=== PATIENT | male | born 1955 | race Caucasian/White ===

== ENCOUNTER 2017-02-24 19:28 | Observation (INO) | payer BC ==
[2017-02-24] MEDS ORDERED: Ondansetron 4 MG/2 ML SDV IVPUSH ONE (19:57)
[2017-02-24] MEDS ORDERED: Sodium Chloride 0.9% 1,000 ML IV ONE (19:57)
--- NOTE | 2017-02-24 19:57 | EDM.PDOC ---
ED HPI GENERAL MEDICAL PROBLEM - General Stated Complaint: VOMITING BLOOD Time Seen by Provider: 02/24/17 19:45 Source of Information: Reports: Patient, Family History Limitations: Reports: No Limitations - History of Present Illness INITIAL COMMENTS - FREE TEXT/NARRATIVE: History of present illness: [61-year-old male presenting with acute vomiting of dark blood and some small amount of rectal bleeding. Patient indicates that this started this afternoon and escalated to the point that he can control vomiting nor does he have consistent control of his bowel movements.] Review of systems: As per history of present illness and below otherwise all systems reviewed and negative. Past medical history: As per history of present illness and as reviewed below otherwise noncontributory. Surgical history: As per history of present illness and as reviewed below otherwise noncontributory. Social history: No reported history of drug or alcohol abuse. Family history: As per history of present illness and as reviewed below otherwise noncontributory. Physical exam: HEENT: Atraumatic, normocephalic, pupils reactive, negative for conjunctival pallor or scleral icterus, mucous membranes moist, throat clear, neck supple, nontender, trachea midline. Lungs: Clear to auscultation, breath sounds equal bilaterally, chest nontender. Heart: S1S2, regular, negative for clicks, rubs, or JVD. Abdomen: Soft, nondistended, nontender. Negative for masses or hepatosplenomegaly. Negative for costovertebral tenderness. Pelvis: Stable nontender. Genitourinary: Deferred. Rectal: Deferred. Extremities: Atraumatic, negative for cords or calf pain. Neurovascular unremarkable. Neuro: Awake, alert, oriented. Cranial nerves II through XII unremarkable. Cerebellum unremarkable. Motor and sensory unremarkable throughout. Exam nonfocal. Patient vomiting into sink upon arrival with obvious blood and water mixed. Patient acknowledges drinking a significant amount of water due to excessive thirst prior to arrival. After vomiting patient requested to drink more water. Patient was also incontinent of obvious basil dark lead, as well as rushing to the bathroom and having basil blood tinged stooling. Patient acknowledged that he has having trouble maintaining continence and in fact soiled his gown in attempting to get to the bathroom in a timely manner. Dr. Romero called and informed of patient in ED indicated he would come in and evaluate patient at bedside. Diagnostics: [CBC, CMP, UA, amylase, lipase, CT without contrast] Therapeutics: [IV fluid, Zofran, Protonix IV push] Impression: [#1 GI bleed] Plan: [Admit to Dr. Romero] Definitive disposition and diagnosis as appropriate pending reevaluation and review of above. abdominal area Pain Score (Numeric/FACES): 5 - Related Data Allergies Allergy/AdvReac Type Severity Reaction Status Date / Time thiethylperazine Allergy Shortness Verified 02/24/17 20:39 [From Torecan] of Breath Home Meds: Home Meds Cetirizine HCl [Zyrtec] 10 mg PO DAILY 02/24/17 [History] Fluticasone/Vilanterol [Breo Ellipta 200-25 Mcg INH] 1 puff INH DAILY 02/24/17 [ History] Ibuprofen 800 mg PO BID 02/24/17 [History] Levothyroxine 175 mcg PO DAILY 02/24/17 [History] Mometasone Furoate 2 spray INH DAILY 02/24/17 [History] Temazepam [Restoril] 15 mg PO ASDIRECTED PRN 02/24/17 [History] Umeclidinium [place] [Incruse Ellipta*] 1 puff INH DAILY 02/24/17 [History] amLODIPine [Norvasc] 5 mg PO DAILY 02/24/17 [History] metFORMIN [Glucophage] 500 mg PO BID 02/24/17 [History] ED ROS GENERAL - Review of Systems Review Of Systems: See Below (The history of present illness) ED EXAM, GENERAL - Physical Exam Exam: See Below (See history of present illness) Course - Vital Signs Last Recorded V/S: Last Vital Signs Temp 36.5 C 02/24/17 22:46 Pulse 102 H 02/24/17 21:57 Resp 18 02/24/17 22:46 BP 148/87 H 02/24/17 22:46 Pulse Ox 94 L 02/24/17 22:46 - Orders/Labs/Meds Orders: Active Orders 24 hr Category Date Time Status Abdomen Pelvis w Cont [CT] Stat Exams 02/24/17 20:32 Stop Req Abdomen Pelvis wo Cont [CT] Stat Exams 02/24/17 21:20 Ordered DRUG SCREEN, URINE [URCHEM] Stat Lab 02/24/17 21:20 Uncollected Pantoprazole [ProTONIX IV] 80 mg Med 02/24/17 20:45 Ordered Sodium Chloride 0.9% [Normal Saline] 100 ml IV .Continuous Sodium Chloride 0.9% [Normal Saline] 1,000 ml Med 02/24/17 23:00 Active IV ASDIRECTED Medication Orders Pantoprazole Sodium 80 mg/ (Sodium Chloride) 100 mls @ 10 mls/hr IV .Continuous FAN Last Admin: 02/24/17 21:14 Dose: 10 mls/hr Sodium Chloride (Normal Saline) 1,000 mls @ 999 mls/hr IV ASDIRECTED FAN Last Admin: 02/24/17 22:47 Dose: 999 mls/hr Labs: Laboratory Tests 02/24/17 02/24/17 02/24/17 Range/Units 20:04 20:05 20:30 WBC 18.64 H (4.0-11.0) K/uL RBC 6.21 H (4.50-5.90) M/uL Hgb 20.2 H (13.0-17.0) g/dL Hct 55.9 H (38.0-50.0) % MCV 90.0 (80.0-98.0) fL MCH 32.5 H (27.0-32.0) pg MCHC 36.1 (31.0-37.0) g/dL RDW Std Deviation 43.2 (28.0-62.0) fl RDW Coeff of Sergio 13 (11.0-15.0) % Plt Count 267 (150-400) K/uL MPV 10.50 (7.40-12.00) fL Neut % (Auto) 82.6 H (48.0-80.0) % Lymph % (Auto) 7.6 L (16.0-40.0) % Lucas % (Auto) 9.4 (0.0-15.0) % Eos % (Auto) 0.2 (0.0-7.0) % Baso % (Auto) 0.2 (0.0-1.5) % Neut # (Auto) 15.4 H (1.4-5.7) K/uL Lymph # (Auto) 1.4 (0.6-2.4) K/uL Lucas # (Auto) 1.8 H (0.0-0.8) K/uL Eos # (Auto) 0.0 (0.0-0.7) K/uL Baso # (Auto) 0.0 (0.0-0.1) K/uL Nucleated RBC % 0.0 /100WBC Nucleated RBCs # 0 K/uL Lactate (0.20-2.00) mmol/L Sodium 133 L (136-146) mmol/L Potassium 4.8 (3.5-5.1) mmol/L Chloride 103 (98-110) mmol/L Carbon Dioxide 13 L (21-31) mmol/L BUN 34 H (6.0-23.0) mg/dL Creatinine 2.5 H (0.6-1.5) mg/dL Est Cr Clr Drug Dosing TNP Estimated GFR (MDRD) 26.6 ml/min Glucose 164 H (60-110) mg/dL POC Glucose 154 H (60-110) mg/dL Calcium 10.7 (8.8-10.8) mg/dL Total Bilirubin 1.6 H (0.1-1.5) mg/dL AST 98 H (5-40) IU/L ALT 109 H (8-54) IU/L Alkaline Phosphatase 117 (40-150) Total Protein 9.5 H (6.0-8.0) g/dL Albumin 4.7 (3.5-5.0) g/dL Globulin 4.8 H (2.0-3.5) g/dL Albumin/Globulin Ratio 1.0 L (1.3-2.8) Amylase 56 (10-90) U/L Lipase 26 (7-80) U/L Ethyl Alcohol mg/dL 02/24/17 02/24/17 Range/Units 20:30 20:30 WBC (4.0-11.0) K/uL RBC (4.50-5.90) M/uL Hgb (13.0-17.0) g/dL Hct (38.0-50.0) % MCV (80.0-98.0) fL MCH (27.0-32.0) pg MCHC (31.0-37.0) g/dL RDW Std Deviation (28.0-62.0) fl RDW Coeff of Sergio (11.0-15.0) % Plt Count (150-400) K/uL MPV (7.40-12.00) fL Neut % (Auto) (48.0-80.0) % Lymph % (Auto) (16.0-40.0) % Lucas % (Auto) (0.0-15.0) % Eos % (Auto) (0.0-7.0) % Baso % (Auto) (0.0-1.5) % Neut # (Auto) (1.4-5.7) K/uL Lymph # (Auto) (0.6-2.4) K/uL Lucas # (Auto) (0.0-0.8) K/uL Eos # (Auto) (0.0-0.7) K/uL Baso # (Auto) (0.0-0.1) K/uL Nucleated RBC % /100WBC Nucleated RBCs # K/uL Lactate 2.3 H (0.20-2.00) mmol/L Sodium (136-146) mmol/L Potassium (3.5-5.1) mmol/L Chloride (98-110) mmol/L Carbon Dioxide (21-31) mmol/L BUN (6.0-23.0) mg/dL Creatinine (0.6-1.5) mg/dL Est Cr Clr Drug Dosing Estimated GFR (MDRD) ml/min Glucose (60-110) mg/dL POC Glucose (60-110) mg/dL Calcium (8.8-10.8) mg/dL Total Bilirubin (0.1-1.5) mg/dL AST (5-40) IU/L ALT (8-54) IU/L Alkaline Phosphatase (40-150) Total Protein (6.0-8.0) g/dL Albumin (3.5-5.0) g/dL Globulin (2.0-3.5) g/dL Albumin/Globulin Ratio (1.3-2.8) Amylase (10-90) U/L Lipase (7-80) U/L Ethyl Alcohol < 10.0 mg/dL Meds: Medications Generic Name Dose Route Start Last Admin Trade Name Freq PRN Reason Stop Dose Admin Pantoprazole Sodium 80 mg/ 100 mls @ 10 mls/hr 02/24/17 20:45 02/24/17 21:14 Sodium Chloride IV 10 mls/hr .Continuous FAN Administration Sodium Chloride 1,000 mls @ 999 mls/hr 02/24/17 23:00 02/24/17 22:47 Normal Saline IV 999 mls/hr ASDIRECTED FAN Administration Discontinued Medications Generic Name Dose Route Start Last Admin Trade Name Mario PRN Reason Stop Dose Admin Sodium Chloride 1,000 mls @ 999 mls/hr 02/24/17 19:57 02/24/17 20:27 Normal Saline IV 02/24/17 20:57 999 mls/hr STAT ONE Administration Ondansetron HCl 4 mg 02/24/17 19:57 02/24/17 20:27 Zofran IVPUSH 02/24/17 19:58 4 mg ONETIME ONE Administration Pantoprazole Sodium 80 mg 02/24/17 20:00 02/24/17 20:27 Protonix Iv IVPUSH 02/24/17 20:01 80 mg .BOLUS ONE Administration Departure - Departure Time of Disposition: 22:50 Disposition: Admitted As Inpatient 68 Condition: Good Clinical Impression: GI bleed - Discharge Information Referrals: PCP,None [Primary Care Provider] - - My Orders Last 24 Hours: My Active Orders 02/24/17 20:32 Abdomen Pelvis w Cont [CT] Stat 02/24/17 20:45 Pantoprazole [ProTONIX IV] 80 mg Sodium Chloride 0.9% [Normal Saline] 100 ml IV .Continuous 02/24/17 21:20 Abdomen Pelvis wo Cont [CT] Stat DRUG SCREEN, URINE [URCHEM] Stat 02/24/17 23:00 Sodium Chloride 0.9% [Normal Saline] 1,000 ml IV ASDIRECTED - Assessment/Plan Last 24 Hours: My Active Orders 02/24/17 20:32 Abdomen Pelvis w Cont [CT] Stat 02/24/17 20:45 Pantoprazole [ProTONIX IV] 80 mg Sodium Chloride 0.9% [Normal Saline] 100 ml IV .Continuous 02/24/17 21:20 Abdomen Pelvis wo Cont [CT] Stat DRUG SCREEN, URINE [URCHEM] Stat 02/24/17 23:00 Sodium Chloride 0.9% [Normal Saline] 1,000 ml IV ASDIRECTED
[2017-02-24] MEDS ORDERED: Pantoprazole 40 MG Vial IVPUSH ONE (20:00)
[2017-02-24 20:57] LABS: CHLORIDE,CL 103 mmol/L (98-110); SODIUM,NA 133 mmol/L (136-146)
[2017-02-24] MEDS: Pantoprazole 80 MG in Sodium Chloride 0.9% 100 ML IV SCH (21:14)
[2017-02-24] MEDS ORDERED: Sodium Chloride 0.9% 1,000 ML IV SCH (23:00)
[2017-02-25] MEDS ORDERED: Ondansetron 4 MG/2 ML SDV IVPUSH PRN (00:12)
--- NOTE | 2017-02-25 00:22 | PCM.HP ---
H&P History of Present Illness - General Admit Problem/Dx: Admission Diagnosis/Problem Admission Diagnosis/Problem Gastritis - History of Present Illness Initial Comments - Free Text/Narative: 61 yo male with pmh of COPD and ETOH cirrhosis who presents with nausea, vomiting and diarrhea. He reports the last few days at work had been physically exhausting and emotionally stress full. He thinks he was dehydrated. He reports after eating dinner he had multiple episodes of vomit with some flecks of red blood. He also reports continuous watery stools that were yellow in color but he denies any blood in his stool. He reports he had an EGD in the s which was normal. He received IV fluids in the ED and reports he is feeling much better. CT scan of the abdomen reports bowel wall thickening of the duodenum. Patient takes ibuprofen daily for back pain. abdominal area Pain Score (Numeric/FACES): 5 - Related Data Allergies/Adverse Reactions: Allergies Allergy/AdvReac Type Severity Reaction Status Date / Time thiethylperazine Allergy Shortness Verified 02/24/17 20:39 [From Torecan] of Breath Home Medications: Home Meds Cetirizine HCl [Zyrtec] 10 mg PO DAILY 02/24/17 [History] Fluticasone/Vilanterol [Breo Ellipta 200-25 Mcg INH] 1 puff INH DAILY 02/24/17 [ History] Ibuprofen 800 mg PO BID 02/24/17 [History] Levothyroxine 175 mcg PO DAILY 02/24/17 [History] Mometasone Furoate 2 spray INH DAILY 02/24/17 [History] Temazepam [Restoril] 15 mg PO ASDIRECTED PRN 02/24/17 [History] Umeclidinium [place] [Incruse Ellipta*] 1 puff INH DAILY 02/24/17 [History] amLODIPine [Norvasc] 5 mg PO DAILY 02/24/17 [History] metFORMIN [Glucophage] 500 mg PO BID 02/24/17 [History] Past Medical History Cardiovascular History: Reports: Hypertension Respiratory History: Reports: Asthma, COPD, Sleep Apnea Musculoskeletal History: Reports: Back Pain, Chronic Other Endocrine/Metabolic History: grave's dse - Infectious Disease History Infectious Disease History: Reports: Chicken Pox, Measles, Mumps - Past Surgical History Cardiovascular Surgical History: Reports: None Respiratory Surgical History: Reports: None Musculoskeletal Surgical History: Reports: Carpal Tunnel, Shoulder Replacement Other Musculoskeletal Surgeries/Procedures:: back surgery, right arm and leg surgery Social & Family History - Family History Family Medical History: Noncontributory - Tobacco Use Smoking Status *Q: Never Smoker Second Hand Smoke Exposure: No - Caffeine Use Caffeine Use: Reports: Coffee Caffeine Use Comment: 1cup/day - Recreational Drug Use Recreational Drug Use: No H&P Review of Systems - Review of Systems: Review Of Systems: ROS reveals no pertinent complaints other than HPI. Exam - Exam Exam: See Below - Vital Signs Vital Signs: Last Vital Signs Temp 36.5 C 02/24/17 22:46 Pulse 102 H 02/24/17 21:57 Resp 18 02/24/17 22:46 BP 148/87 H 02/24/17 22:46 Pulse Ox 94 L 02/24/17 22:46 Weight: 112.1 kg - Exam General: Alert, Oriented HEENT: Mucosa Moist & [place] Neck: Supple Lungs: Clear to Auscultation, Normal Respiratory Effort Cardiovascular: Regular Rate, Systolic Murmur GI/Abdominal Exam: Soft, Non-Tender, No Distention, No Mass Extremities: Non-Tender, No Pedal Edema Skin: Warm, Dry, Intact - Patient Data Lab Results Last 24 hrs: Laboratory Results - last 24 hr 02/24/17 02/24/17 02/24/17 Range/Units 20:04 20:05 20:30 WBC 18.64 H (4.0-11.0) K/uL RBC 6.21 H (4.50-5.90) M/uL Hgb 20.2 H (13.0-17.0) g/dL Hct 55.9 H (38.0-50.0) % MCV 90.0 (80.0-98.0) fL MCH 32.5 H (27.0-32.0) pg MCHC 36.1 (31.0-37.0) g/dL RDW Std Deviation 43.2 (28.0-62.0) fl RDW Coeff of Sergio 13 (11.0-15.0) % Plt Count 267 (150-400) K/uL MPV 10.50 (7.40-12.00) fL Neut % (Auto) 82.6 H (48.0-80.0) % Lymph % (Auto) 7.6 L (16.0-40.0) % [place] % (Auto) 9.4 (0.0-15.0) % Eos % (Auto) 0.2 (0.0-7.0) % Baso % (Auto) 0.2 (0.0-1.5) % Neut # (Auto) 15.4 H (1.4-5.7) K/uL Lymph # (Auto) 1.4 (0.6-2.4) K/uL [place] # (Auto) 1.8 H (0.0-0.8) K/uL Eos # (Auto) 0.0 (0.0-0.7) K/uL Baso # (Auto) 0.0 (0.0-0.1) K/uL Nucleated RBC % 0.0 /100WBC Nucleated RBCs # 0 K/uL Lactate (0.20-2.00) mmol/L Sodium 133 L (136-146) mmol/L Potassium 4.8 (3.5-5.1) mmol/L Chloride 103 (98-110) mmol/L Carbon Dioxide 13 L (21-31) mmol/L BUN 34 H (6.0-23.0) mg/dL Creatinine 2.5 H (0.6-1.5) mg/dL Est Cr Clr Drug Dosing TNP Estimated GFR (MDRD) 26.6 ml/min Glucose 164 H (60-110) mg/dL POC Glucose 154 H (60-110) mg/dL Calcium 10.7 (8.8-10.8) mg/dL Total Bilirubin 1.6 H (0.1-1.5) mg/dL AST 98 H (5-40) IU/L ALT 109 H (8-54) IU/L Alkaline Phosphatase 117 (40-150) Total Protein 9.5 H (6.0-8.0) g/dL Albumin 4.7 (3.5-5.0) g/dL Globulin 4.8 H (2.0-3.5) g/dL Albumin/Globulin Ratio 1.0 L (1.3-2.8) Amylase 56 (10-90) U/L Lipase 26 (7-80) U/L Urine Opiates Screen (NEGATIVE) Ur Oxycodone Screen (NEGATIVE) Urine Methadone Screen (NEGATIVE) Ur Barbiturates Screen (NEGATIVE) Ur Phencyclidine Scrn (NEGATIVE) Ur Amphetamine Screen (NEGATIVE) U Methamphetamines Scrn (NEGATIVE) U Benzodiazepines Scrn (NEGATIVE) U Cocaine Metab Screen (NEGATIVE) U Marijuana (THC) Screen (NEGATIVE) Ethyl Alcohol mg/dL 02/24/17 02/24/17 02/24/17 Range/Units 20:30 20:30 23:20 WBC (4.0-11.0) K/uL RBC (4.50-5.90) M/uL Hgb (13.0-17.0) g/dL Hct (38.0-50.0) % MCV (80.0-98.0) fL MCH (27.0-32.0) pg MCHC (31.0-37.0) g/dL RDW Std Deviation (28.0-62.0) fl RDW Coeff of Sergio (11.0-15.0) % Plt Count (150-400) K/uL MPV (7.40-12.00) fL Neut % (Auto) (48.0-80.0) % Lymph % (Auto) (16.0-40.0) % [place] % (Auto) (0.0-15.0) % Eos % (Auto) (0.0-7.0) % Baso % (Auto) (0.0-1.5) % Neut # (Auto) (1.4-5.7) K/uL Lymph # (Auto) (0.6-2.4) K/uL [place] # (Auto) (0.0-0.8) K/uL Eos # (Auto) (0.0-0.7) K/uL Baso # (Auto) (0.0-0.1) K/uL Nucleated RBC % /100WBC Nucleated RBCs # K/uL Lactate 2.3 H (0.20-2.00) mmol/L Sodium (136-146) mmol/L Potassium (3.5-5.1) mmol/L Chloride (98-110) mmol/L Carbon Dioxide (21-31) mmol/L BUN (6.0-23.0) mg/dL Creatinine (0.6-1.5) mg/dL Est Cr Clr Drug Dosing Estimated GFR (MDRD) ml/min Glucose (60-110) mg/dL POC Glucose (60-110) mg/dL Calcium (8.8-10.8) mg/dL Total Bilirubin (0.1-1.5) mg/dL AST (5-40) IU/L ALT (8-54) IU/L Alkaline Phosphatase (40-150) Total Protein (6.0-8.0) g/dL Albumin (3.5-5.0) g/dL Globulin (2.0-3.5) g/dL Albumin/Globulin Ratio (1.3-2.8) Amylase (10-90) U/L Lipase (7-80) U/L Urine Opiates Screen NEGATIVE (NEGATIVE) Ur Oxycodone Screen NEGATIVE (NEGATIVE) Urine Methadone Screen NEGATIVE (NEGATIVE) Ur Barbiturates Screen NEGATIVE (NEGATIVE) Ur Phencyclidine Scrn NEGATIVE (NEGATIVE) Ur Amphetamine Screen NEGATIVE (NEGATIVE) U Methamphetamines Scrn POSITIVE (NEGATIVE) U Benzodiazepines Scrn NEGATIVE (NEGATIVE) U Cocaine Metab Screen NEGATIVE (NEGATIVE) U Marijuana (THC) Screen NEGATIVE (NEGATIVE) Ethyl Alcohol < 10.0 mg/dL Result Diagrams: 02/25/17 05:02 02/25/17 05:02 *Q Meaningful Use (ADM) - VTE *Q VTE Criteria *Q: - Stroke *Q Stroke Criteria *Q: - AMI *Q AMI Criteria *Q: Problem List Initiated/Reviewed/Updated: Yes Orders Last 24hrs: Active Orders 24 hr Category Date Time Status Patient Status [ADT] Routine ADT 02/25/17 00:12 Ordered Antiembolic Devices [RC] PER UNIT ROUTINE Care 02/25/17 00:15 Ordered Intake and Output [RC] QSHIFT Care 02/25/17 00:15 Ordered Oxygen Therapy [RC] PRN Care 02/25/17 00:12 Ordered Up ad [place] [RC] ASDIRECTED Care 02/25/17 00:12 Ordered VTE/DVT Education [RC] PER UNIT ROUTINE Care 02/25/17 00:12 Ordered Vital Signs [RC] Q4H Care 02/25/17 00:12 Ordered Nothing per Oral Now Diet [DIET] Diet 02/25/17 Breakfast Ordered Abdomen Pelvis wo Cont [CT] Stat Exams 02/24/17 21:20 Taken CBC WITH AUTO DIFF [HEME] AM Lab 02/25/17 05:11 Ordered COMPREHENSIVE METABOLIC PN,CMP [CHEM] AM Lab 02/25/17 05:11 Ordered Ondansetron [Zofran] Med 02/25/17 00:12 Ordered 4 mg IVPUSH Q4H PRN Pantoprazole [ProTONIX IV] 80 mg Med 02/24/17 20:45 Active Sodium Chloride 0.9% [Normal Saline] 100 ml IV .Continuous Sodium Chloride 0.9% @ 125 MLS/HR (1000ml) Med 02/25/17 00:15 Ordered Sodium Chloride 0.9% [Normal Saline] 1,000 ml IV ASDIRECTED Sodium Chloride 0.9% [Normal Saline] 1,000 ml Med 02/24/17 23:00 Active IV ASDIRECTED Sequential Compression Device [OM.PC] Per Unit Routine Oth 02/25/17 00:15 Ordered Resuscitation Status Routine Resus Stat 02/25/17 00:12 Ordered Medication Orders Pantoprazole Sodium 80 mg/ (Sodium Chloride) 100 mls @ 10 mls/hr IV .Continuous FAN Last Admin: 02/24/17 21:14 Dose: 10 mls/hr Sodium Chloride (Normal Saline) 1,000 mls @ 999 mls/hr IV ASDIRECTED FAN Last Admin: 02/24/17 22:47 Dose: 999 mls/hr Assessment/Plan Comment:: 61 yo male admitted with nausea, vomiting and diarrhea with CT scan suggestive of duodenitis. Treating with IV protonix and IV fluids. At this point do not think significant GI bleeding has occurred but will continue to monitor. Dr. Zhou has been consulted.
[2017-02-25] MEDS ORDERED: cefTRIAXone 1,000 MG in Sodium Chloride 0.9% 50 ML IV ONE (00:23)
[2017-02-25] MEDS ORDERED: cefTRIAXone 1 GM in Premix Bag 1 BAG IV ONE (01:08)
[2017-02-25] MEDS: Sodium Chloride 0.9% 1,000 ML IV SCH ×2 (01:53→10:17)
[2017-02-25] MEDS: Pantoprazole 80 MG in Sodium Chloride 0.9% 100 ML IV SCH (06:08)
[2017-02-25] MEDS: Insulin Aspart 100 Units/ML 3 ML Pen SUBCUT SCH ×2 (06:10→13:04)
[2017-02-25] MEDS ORDERED: Levothyroxine 100 MCG Tab PO SCH (08:15)
[2017-02-25] MEDS ORDERED: Levothyroxine 75 MCG Tab PO SCH (08:15)
[2017-02-25] MEDS ORDERED: Umeclidinium Bromide 1 PUFF INH SCH (09:00)
[2017-02-25] MEDS ORDERED: Mometasone Furoate Nasal Spray 17 GM Canister NAS SCH (09:00)
[2017-02-25] MEDS ORDERED: Fluticasone/Vilanterol 1 PUFF INH SCH (09:00)
--- NOTE | 2017-02-25 09:55 | PCM.CONS ---
H&P History of Present Illness - General Date of Service: 02/25/17 Admit Problem/Dx: Admission Diagnosis/Problem Admission Diagnosis/Problem Gastritis Source of Information: Patient History Limitations: Reports: No Limitations - History of Present Illness Initial Comments - Free Text/Narative: Patient is a 61 yo male with hepatitis C who presented to the ED last night with nausea, vomiting, diarrhea and dehydration. He states that he has a very stressful job and has been running himself into the ground. Yesterday, he developed an acute onset of nausea vomiting and diarrhea. He was unable to keep any fluids down and came to the ER. There was concern for bloody appearing BMs and blood tinged vomit. With his history of liver cirrhosis, he was admited for close monitoring. His lactate was slightly elevated as well as his Cr. He was given fluids and anti-emetics. He feels much better this morning and is no longer nauseated and hasnt vomited. He continues to have loose BM, but feels this is improving as well. His mother of bleeding esophageal varices and he says that he knows what coffee ground emesis and bloody stools look like. He denies seeing either. He last was scoped (EGD/colonoscopy) in the s. He sees a physician for management of his liver disease. He does take NSAIDs for chronic back pain. His CT showed questionable duodenitis. He does c/o heartburn that he takes Tums for. His UA drug screen was also positive for meth. He denies this and says that he drinks large amounts of energy drinks to get through the day. abdominal area Pain Score (Numeric/FACES): 5 - Related Data Allergies/Adverse Reactions: Allergies Allergy/AdvReac Type Severity Reaction Status Date / Time thiethylperazine Allergy Shortness Verified 02/24/17 20:39 [From Torecan] of Breath Home Medications: Home Meds Cetirizine HCl [Zyrtec] 10 mg PO DAILY 02/24/17 [History] Fluticasone/Vilanterol [Breo Ellipta 200-25 Mcg INH] 1 puff INH DAILY 02/24/17 [ History] Ibuprofen 800 mg PO BID 02/24/17 [History] Levothyroxine 175 mcg PO DAILY 02/24/17 [History] Mometasone Furoate 2 spray INH DAILY 02/24/17 [History] Temazepam [Restoril] 15 mg PO ASDIRECTED PRN 02/24/17 [History] Umeclidinium [place] [Incruse Ellipta*] 1 puff INH DAILY 02/24/17 [History] amLODIPine [Norvasc] 5 mg PO DAILY 02/24/17 [History] metFORMIN [Glucophage] 500 mg PO BID 02/24/17 [History] Past Medical History Cardiovascular History: Reports: Hypertension Respiratory History: Reports: Asthma, COPD, Sleep Apnea Musculoskeletal History: Reports: Back Pain, Chronic Endocrine/Metabolic History: Reports: Diabetes, Type I Other Endocrine/Metabolic History: grave's dse - Infectious Disease History Infectious Disease History: Reports: Chicken Pox, Measles, Mumps - Past Surgical History Cardiovascular Surgical History: Reports: None Respiratory Surgical History: Reports: None Musculoskeletal Surgical History: Reports: Carpal Tunnel, Shoulder Replacement Other Musculoskeletal Surgeries/Procedures:: back surgery, right arm and leg surgery Social & Family History - Family History Family Medical History: Noncontributory - Tobacco Use Smoking Status *Q: Never Smoker Used Tobacco, but Quit: No Second Hand Smoke Exposure: No - Caffeine Use Caffeine Use: Reports: Coffee Caffeine Use Comment: 1cup/day - Alcohol Use Date of Last Drink: 02/11/17 Time of Last Drink: 20:00 - Recreational Drug Use Recreational Drug Use: No H&P Review of Systems - Review of Systems: Review Of Systems: ROS reveals no pertinent complaints other than HPI. Exam - Exam Exam: See Below - Vital Signs Vital Signs: Last Vital Signs Temp 37.3 C 02/25/17 07:58 Pulse 92 02/25/17 07:58 Resp 20 02/25/17 07:58 BP 129/77 02/25/17 07:58 Pulse Ox 91 L 02/25/17 07:58 Weight: 112.1 kg - Exam General: Alert, Oriented HEENT: Conjunctiva Clear, EOMI, Hearing Intact, Mucosa Moist & [place], Posterior Pharynx Clear, Pupils Equal, Pupils Reactive Neck: Supple, Trachea Midline Lungs: Clear to Auscultation, Normal Respiratory Effort Cardiovascular: Regular Rate, Regular Rhythm GI/Abdominal Exam: Other (Soft, obese, nontender. No evidence of caput medusae. No palpable ascites. Small umbilical hernia. ) - Patient Data Lab Results Last 24 hrs: Laboratory Results - last 24 hr 02/25/17 02/25/17 02/25/17 Range/Units 01:49 05:02 05:02 WBC 8.93 (4.0-11.0) K/uL RBC 4.90 (4.50-5.90) M/uL Hgb 15.8 (13.0-17.0) g/dL Hct 44.1 (38.0-50.0) % MCV 90.0 (80.0-98.0) fL MCH 32.2 H (27.0-32.0) pg MCHC 35.8 (31.0-37.0) g/dL RDW Std Deviation 43.1 (28.0-62.0) fl RDW Coeff of Sergio 13 (11.0-15.0) % Plt Count 159 (150-400) K/uL MPV 10.30 (7.40-12.00) fL Neut % (Auto) 72.6 (48.0-80.0) % Lymph % (Auto) 14.9 L (16.0-40.0) % [place] % (Auto) 11.9 (0.0-15.0) % Eos % (Auto) 0.4 (0.0-7.0) % Baso % (Auto) 0.2 (0.0-1.5) % Neut # (Auto) 6.5 H (1.4-5.7) K/uL Lymph # (Auto) 1.3 (0.6-2.4) K/uL [place] # (Auto) 1.1 H (0.0-0.8) K/uL Eos # (Auto) 0.0 (0.0-0.7) K/uL Baso # (Auto) 0.0 (0.0-0.1) K/uL Nucleated RBC % 0.0 /100WBC Nucleated RBCs # 0 K/uL Lactate 1.2 (0.20-2.00) mmol/L Sodium 132 L (136-146) mmol/L Potassium 4.3 (3.5-5.1) mmol/L Chloride 106 (98-110) mmol/L Carbon Dioxide 16 L (21-31) mmol/L BUN 28 H (6.0-23.0) mg/dL Creatinine 1.4 (0.6-1.5) mg/dL Est Cr Clr Drug Dosing 62.36 mL/min Estimated GFR (MDRD) 51.9 ml/min Glucose 128 H (60-110) mg/dL POC Glucose (60-110) mg/dL Calcium 8.6 L (8.8-10.8) mg/dL Total Bilirubin 1.9 H (0.1-1.5) mg/dL AST 78 H (5-40) IU/L ALT 86 H (8-54) IU/L Alkaline Phosphatase 78 (40-150) Total Protein 7.1 (6.0-8.0) g/dL Albumin 3.8 (3.5-5.0) g/dL Globulin 3.3 (2.0-3.5) g/dL Albumin/Globulin Ratio 1.2 L (1.3-2.8) 02/25/17 Range/Units 06:07 WBC (4.0-11.0) K/uL RBC (4.50-5.90) M/uL Hgb (13.0-17.0) g/dL Hct (38.0-50.0) % MCV (80.0-98.0) fL MCH (27.0-32.0) pg MCHC (31.0-37.0) g/dL RDW Std Deviation (28.0-62.0) fl RDW Coeff of Sergio (11.0-15.0) % Plt Count (150-400) K/uL MPV (7.40-12.00) fL Neut % (Auto) (48.0-80.0) % Lymph % (Auto) (16.0-40.0) % [place] % (Auto) (0.0-15.0) % Eos % (Auto) (0.0-7.0) % Baso % (Auto) (0.0-1.5) % Neut # (Auto) (1.4-5.7) K/uL Lymph # (Auto) (0.6-2.4) K/uL Hartley # (Auto) (0.0-0.8) K/uL Eos # (Auto) (0.0-0.7) K/uL Baso # (Auto) (0.0-0.1) K/uL Nucleated RBC % /100WBC Nucleated RBCs # K/uL Lactate (0.20-2.00) mmol/L Sodium (136-146) mmol/L Potassium (3.5-5.1) mmol/L Chloride (98-110) mmol/L Carbon Dioxide (21-31) mmol/L BUN (6.0-23.0) mg/dL Creatinine (0.6-1.5) mg/dL Est Cr Clr Drug Dosing mL/min Estimated GFR (MDRD) ml/min Glucose (60-110) mg/dL POC Glucose 117 H (60-110) mg/dL Calcium (8.8-10.8) mg/dL Total Bilirubin (0.1-1.5) mg/dL AST (5-40) IU/L ALT (8-54) IU/L Alkaline Phosphatase (40-150) Total Protein (6.0-8.0) g/dL Albumin (3.5-5.0) g/dL Globulin (2.0-3.5) g/dL Albumin/Globulin Ratio (1.3-2.8) Result Diagrams: 02/25/17 05:02 02/25/17 05:02 Consult PN Assessment/Plan (1) Liver cirrhosis SNOMED Code(s): 12719541 Code(s): K74.60 - UNSPECIFIED CIRRHOSIS OF LIVER Current Visit: Yes (2) Nausea & vomiting SNOMED Code(s): 79008628 Code(s): R11.2 - NAUSEA WITH VOMITING, UNSPECIFIED Current Visit: Yes (3) Duodenitis SNOMED Code(s): 83448677 Code(s): K29.80 - DUODENITIS WITHOUT BLEEDING Current Visit: Yes Problem List Initiated/Reviewed/Updated: Yes My Orders Last 24 Hours: My Active Orders 02/25/17 08:34 CULTURE STOOL + CAMPY+SHIGATOX [RM] Routine WBC, STOOL [OP] Routine 02/25/17 08:35 Fecal Occult Blood Collection [RC] ASDIRECTED Plan: The patient appears to be improving. He no longer is having nausea/vomiting and wants to eat. His BMs have slowed down as well. His rectal exam showed no evidence of prolapsing hemorrhoids and there was no dark stools on my glove. His hemoglobin is stable. He is ok from my standpoint to eat. I would treat him aggressively with PPI therapy for his duodenitis. Since he has no signs of an active bleed I feel comfortable scoping him as an outpatient. I do recommend stool studies to rule out fecal occult blood, H pylori or bacterial cause to his diarrhea. He should avoid NSAIDs.
[2017-02-25] MEDS ORDERED: FLU Vacc QS 2017-18 (36mos UP)/PF 60 MCG/0.5 ML Syringe IM ONE (10:00)
[2017-02-25] MEDS ORDERED: Pantoprazole 80 MG in Sodium Chloride 0.9% 100 ML IV SCH (16:00)
--- NOTE | 2017-02-26 09:19 | PCM.DCSUM1 ---
Discharge Summary - Discharge Data Discharge Date: 02/26/17 Discharge Disposition: Home, Self-Care 01 Condition: Fair - Patient Summary/Data Consults: Consultations 02/25/17 00:36 Consult to Physician [CONS] Stat Hospital Course: Admission diagnosis Duodenitis Hospital Course: 61 yo male with hepatitis C and liver cirrhosis who presented to the ED last night with one day history of nausea, vomiting, diarrhea and dehydration. There was concern for bloody appearing BMs and blood tinged vomit. CT scan reported possible duodenitis. His lactate, WBC and creatinine were elevated but return to normal with IV fluids the next morning. His Hgb has remained stable at 15.8. Dr. Zhou was consulted and recommened outpatient EGD with aggresive PPI therapy. Today he is requesting discharge home. He was discharged home on protonix 40mg BID and he was instructed to stop taking ibuprofen and no other NSAIDs. - Patient Instructions Diet: Regular Diet as Tolerated - Discharge Plan Home Medications: Home Meds Cetirizine HCl [Zyrtec] 10 mg PO DAILY 02/24/17 [History] Fluticasone/Vilanterol [Breo Ellipta 200-25 Mcg INH] 1 puff INH DAILY 02/24/17 [ History] Levothyroxine 175 mcg PO DAILY 02/24/17 [History] Mometasone Furoate 2 spray INH DAILY 02/24/17 [History] Temazepam [Restoril] 15 mg PO ASDIRECTED PRN 02/24/17 [History] Umeclidinium [place] [Incruse Ellipta*] 1 puff INH DAILY 02/24/17 [History] amLODIPine [Norvasc] 5 mg PO DAILY 02/24/17 [History] metFORMIN [Glucophage] 500 mg PO BID 02/24/17 [History] Patient Handouts: Nausea and Vomiting, Adult Forms: ED Department Discharge Referrals: PCP,None [Primary Care Provider] - - Patient Data Vitals - Most Recent: Last Vital Signs Temp 36.7 C 02/25/17 12:00 Pulse 88 02/25/17 12:00 Resp 20 02/25/17 12:00 BP 136/76 02/25/17 12:00 Pulse Ox 93 L 02/25/17 12:00 Weight - Most Recent: 112.1 kg Lab Results - Last 24 hrs: Laboratory Results - last 24 hr 02/25/17 Range/Units 12:40 POC Glucose 111 H (60-110) mg/dL SHERI Results - Last 24 hrs: Microbiology 02/25/17 12:45 Campylobacter Antigen Assay - Final Stool / Feces NEGATIVE CAMPYLOBACTER AG - Final NEGATIVE FOR SHIGA TOXIN 1 - Final NEGATIVE FOR SHIGA TOXIN 2 02/25/17 12:45 Stool for WBCs - Final Stool / Feces POSITIVE FOR WBC'S Med Orders - Current: Current Medications Discontinued Medications Sodium Chloride (Normal Saline) 1,000 mls @ 999 mls/hr IV STAT ONE Stop: 02/24/17 20:57 Last Admin: 02/24/17 20:27 Dose: 999 mls/hr Pantoprazole Sodium 80 mg/ (Sodium Chloride) 100 mls @ 10 mls/hr IV .Continuous FAN Stop: 02/25/17 15:59 Last Admin: 02/25/17 06:08 Dose: 10 mls/hr Sodium Chloride (Normal Saline) 1,000 mls @ 999 mls/hr IV ASDIRECTED [facility] Last Admin: 02/24/17 22:47 Dose: 999 mls/hr Sodium Chloride (Normal Saline) 1,000 mls @ 125 mls/hr IV ASDIRECTED [facility] Last Admin: 02/25/17 10:17 Dose: 125 mls/hr Ceftriaxone Sodium/Dextrose 1 (gm/ Premix) 50 mls @ 100 mls/hr IV ONETIME ONE Stop: 02/25/17 01:37 Last Infusion: 02/25/17 01:51 Dose: Infused Pantoprazole Sodium 80 mg/ (Sodium Chloride) 100 mls @ 10 mls/hr IV Q10H [facility] Influenza Virus Vaccine (Pharmacy To Dose - Influenza Vaccine) 1 each IM ONETIME ONE Stop: 02/25/17 01:40 Influenza Virus Vaccine (Fluarix Quad [id number]) 60 mcg IM .ONCE ONE Stop: 02/25/17 10:01 Last Admin: 02/25/17 10:18 Dose: 60 mcg Insulin Aspart (Novolog) 0 unit SUBCUT Q6H [facility] PRN Reason: Protocol Last Admin: 02/25/17 13:04 Dose: Not Given Levothyroxine Sodium (Synthroid) 100 mcg PO ACBREAKFAST FAN Last Admin: 02/25/17 09:06 Dose: 100 mcg Levothyroxine Sodium (Levothyroxine) 75 mcg PO ACBREAKFAST FAN Last Admin: 02/25/17 09:06 Dose: 75 mcg Ondansetron HCl (Zofran) 4 mg IVPUSH ONETIME ONE Stop: 02/24/17 19:58 Last Admin: 02/24/17 20:27 Dose: 4 mg Ondansetron HCl (Zofran) 4 mg IVPUSH Q4H PRN PRN Reason: Nausea Pantoprazole Sodium (Protonix Iv) 80 mg IVPUSH .BOLUS ONE Stop: 02/24/17 20:01 Last Admin: 02/24/17 20:27 Dose: 80 mg Fluticasone/ (Vilanterol 1 Puff) 1 each INH DAILY FAN Last Admin: 02/25/17 09:10 Dose: 1 each Mometasone Furoate Nasal [place] 17 Gm Canister 2 each LILI DAILY [facility] Last Admin: 02/25/17 09:10 Dose: 2 each Umeclidinium [place] (1 Puff) 1 each INH DAILY [facility] Last Admin: 02/25/17 09:10 Dose: 1 each *Q Meaningful Use (DIS) - VTE *Q VTE Criteria *Q: - Stroke *Q Stroke Criteria *Q: - AMI *Q AMI Criteria *Q:
--- NOTE | 2017-02-26 18:43 | CT ---
EXAM DATE: 02/25/17 PATIENT'S AGE: 61 Patient: MIKI LONG Facility: [place], [place] Site . Site : 1955 Study: CT Abdomen/Pelvis [id number]/20/2017 10:10:22 PM Ordering Physician: Doctor Ahuja Final Report: INDICATION: Abdominal pain, nausea, vomiting, diarrhea TECHNIQUE: CT abdomen and pelvis without contrast. COMPARISON: None FINDINGS: Lower chest: There is a 3 mm subpleural pulmonary nodule in the left lower lobe best seen on image 18 series 201. There is a 3 mm pulmonary nodule in the right middle lobe on image 20 series 201. Liver: Nodular hepatic contour. Spleen: The spleen measures 17 cm in length. Pancreas: Unremarkable. Gallbladder and bile ducts: Cholelithiasis. Adrenal glands: Unremarkable. Kidneys: Unremarkable. No kidney or ureteral stones and no hydronephrosis. GI tract: Mild wall thickening and surrounding fat stranding of the C-loop of the duodenum. Appendix is normal. Vascular structures: Atherosclerotic changes. Lymph nodes: Unremarkable. Miscellaneous: Small fat containing bilateral inguinal hernias. No free air or significant free fluid. Pelvic Organs: Unremarkable. Bones: Intramedullary hayder in the right femur. Entering internal fixation hardware at L4-L5. IMPRESSION: 1. Wall thickening and fat stranding involving the 1st and 2nd portion of the duodenum may represent duodenitis or ulcer disease. No extraluminal air. 2. Nodular hepatic contour suggests cirrhosis. Correlation with clinical history and LFTs recommended. 3. Splenomegaly. 4. Cholelithiasis. 5. Two pulmonary nodules. Followup per Fleischner society guidelines recommended , as listed below. FLEISCHNER SOCIETY GUIDELINES - SOLID NODULES: SINGLE LOW RISK - nodule less than 6 mm: No routine follow-up. - nodule 6-8 mm: CT at 6-12 months, then consider CT at 18-24 months. - nodule greater than 8 mm: Consider CT at 3 months, PET/CT or tissue sampling. SINGLE HIGH RISK - nodule less than 6 mm: Optional CT at 12 months. - nodule 6-8 mm: CT at 6-12 months, then CT at 18-24 months. - nodule greater than 8 mm: Consider CT at 3 months, PET/CT or tissue sampling. MULTIPLE LOW RISK - nodule less than 6 mm: No routine follow-up. - nodule 6-8 mm: CT at 3-6 months, then consider CT at 18-24 months. - nodule greater than 8 mm: CT at 3-6 months, then consider CT at 18-24 months. MULTIPLE HIGH RISK - nodule less than 6 mm: Optional CT at 12 months. - nodule 6-8 mm: CT at 3-6 months, then at 18-24 months. - nodule greater than 8 mm: CT at 3-6 months, then at 18-24 months. Please note that all CT scans at this facility use dose modulation, iterative reconstruction, and/or weight-based dosing when appropriate to reduce radiation dose to as low as reasonably achievable. Dictated by Tamara Sandoval MD @ Feb 24 2017 10:24PM (Electronic Signature) Report Signed by Proxy. MTDD
== END 2017-02-25 13:05 | disposition home or self-care (01) ==
LOC: MW.ED 19:28 → MW.MS 02-25 00:12
PROVIDERS: ADMIT Internal Medicine; ATTEND Internal Medicine
DX: K29.80 Duodenitis without bleeding (principal); B19.20 Unspecified viral hepatitis C without hepatic coma; R11.2 Nausea with vomiting, unspecified; R19.7 Diarrhea, unspecified; E86.0 Dehydration; J44.9 Chronic obstructive pulmonary disease, unspecified; K70.30 Alcoholic cirrhosis of liver without ascites; G47.30 Sleep apnea, unspecified; G89.29 Other chronic pain; M54.9 Dorsalgia, unspecified; E10.9 Type 1 diabetes mellitus without complications; E05.00 Thyrotoxicosis with diffuse goiter without thyrotoxic crisis or storm; Z88.8 Allergy status to other drugs, medicaments and biological substances; Z79.51 Long term (current) use of inhaled steroids; Z79.84 Long term (current) use of oral hypoglycemic drugs; Z79.899 Other long term (current) drug therapy; Z96.619 Presence of unspecified artificial shoulder joint; Z98.890 Other specified postprocedural states
CPT/HCPCS: 36415; 74176; 80053; 80305; 82150; 82962; 83605; 83630; 83690; 85025; 87046; 96361; 96365; 96366; 96375; 99285; A9270; C9113; G0480; J0696; J2405; J7030; J7040; 87899; 90686; 96368; 99284; G0008; G0378